=== PATIENT | male | born 1995 | race Two or more races ===

== ENCOUNTER 2022-05-19 11:55 | Emergency (ER) | payer OTHER ==
[~2022-05-19] VITALS: Ht 162.6 cm; Wt 72.6 kg
[2022-05-19] MEDS ORDERED: FOLIC ACID20 MG PO (12:25)
[2022-05-19] MEDS ORDERED: AMOX-CLAV 875-1 EACH PO (13:36)
[2022-05-19] MEDS ORDERED: KETO10TA2 PO (13:36)
== END 2022-05-19 13:53 | disposition home or self-care (01) ==
LOC: ER 11:55
DX: H60.92 Unspecified otitis externa, left ear (principal)